=== PATIENT | male | born 1980 | race African-American/Black ===

== ENCOUNTER 2025-09-21 10:00 | Emergency (ER) | payer SELFPAY ==
[~2025-09-21] VITALS: Ht 177.8 cm; Wt 82.0 kg
[2025-09-21 10:07] VITALS: BP 117/79; PULSE 98; RESP 16; TEMP 98.4; O2SAT 100
[2025-09-21 10:38] LABS: BASOPHILS % 0.4 % (0.0-2.0); EOSINOPHILS % 1.8 % (0.0-5.0); HEMATOCRIT. 39.5 % (42.0-52.0); HEMOGLOBIN. 12.7 g/dL (14.0-18.0); LYMPHOCYTES % 32.5 % (20.0-50.0); MEAN PLATELET VOLUME 7.2 fl (7.4-10.4); MONOCYTES % 12.5 % (2.0-8.0); NEUTROPHILS % 52.8 % (40.0-76.0); PLATELET 308 x1000/uL (130-400); RED BLOOD CELL COUNT 4.64 mill/uL (4.7-6.1); RED CELL DISTRIBUTION WIDTH 15.9 % (11.6-14.6)
[2025-09-21 10:51] LABS: CREATININE 0.8 mg/dL (0.6-1.3); UREA NITROGEN BLOOD 15 mg/dL (9-23)
[2025-09-21 10:52] LABS: ETHANOL BLOOD < 10 mg/dL (<10)
== END 2025-09-21 10:40 | disposition left against medical advice (07) ==
LOC: ER 10:21
DX: Z00.00 Encounter for general adult medical examination without abnormal findings (principal); Z79.899 Other long term (current) drug therapy
CPT/HCPCS: 36415; 80048; 80320; 85025; 99284; G0480